=== PATIENT | male | born 1950 | race Caucasian/White ===

== ENCOUNTER 2020-05-19 09:07 | Day surgery (SDC) | payer BC ==
[~2020-05-19 09:07] MED LIST: Lactated Ringers 1,000 ML IV SCH; Lidocaine 1%/Sod Bicarbonate in NS 8.4% 1 ML Syringe IDERM PRN; Sodium Chloride 0.9% 10 ML Syringe FLUSH PRN
--- NOTE | 2020-05-19 09:54 | PCM.PREANE ---
Preanesthetic Assessment - Procedure Proposed Procedure: Colonoscopy - Anesthesia/Transfusion/Family Hx Anesthesia History: Prior Anesthesia Without Reaction Family History of Anesthesia Reaction: Yes Type of Transfusion Reactions: Reports: Unknown - Review of Systems General: No Symptoms Pulmonary: No Symptoms Cardiovascular: No Symptoms Gastrointestinal: No Symptoms Neurological: No Symptoms Other: Reports: None - Physical Assessment NPO Status Date: 05/19/20 (Bowel prep) Vital Signs: Last Vital Signs Temp 36.5 C 05/19/20 09:15 Pulse 56 L 05/19/20 09:15 Resp 16 05/19/20 09:15 BP 149/84 H 05/19/20 09:15 Pulse Ox 94 L 05/19/20 09:15 Height: 5 ft 8 in Weight: 72.121 kg ASA Class: 2 Mental Status: Alert & Oriented x3 Airway Class: Mallampati = 2 Dentition: Reports: Normal Dentition Thyro-Mental Finger Breadths: 3 Mouth Opening Finger Breadths: 3 ROM/Head Extension: Full Lungs: Clear to Auscultation, Normal Respiratory Effort Cardiovascular: Regular Rate, Regular Rhythm - Allergies Allergies/Adverse Reactions: Allergies Allergy/AdvReac Type Severity Reaction Status Date / Time No Known Allergies Allergy Verified 05/19/20 09:37 - Acknowledgements Anesthesia Type Planned: MAC Pt an Appropriate Candidate for the Planned Anesthesia: Yes Alternatives and Risks of Anesthesia Discussed w Pt/Guardian: Yes Pt/Guardian Understands and Agrees with Anesthesia Plan: Yes PreAnesthesia Questionnaire HEENT History: Reports: Impaired Vision, Other (See Below) Other HEENT History: wears glasses, nasal congestion Cardiovascular History: Reports: High Cholesterol, Hypertension Gastrointestinal History: Reports: Other (See Below) Other Gastrointestinal History: inguinal hernia Neurological History: Reports: Headaches, Chronic Endocrine/Metabolic History: Reports: Hypothyroidism Oncologic (Cancer) History: Reports: Prostate - Past Surgical History GI Surgical History: Reports: Colonoscopy, Hernia, Inguinal - HOME MEDS Home Medications: Home Meds Levothyroxine Sodium 50 mcg PO DAILY 08/12/16 [History] Multivitamin [Multivitamins] 1 each PO DAILY 08/12/16 [History] atorvaSTATin Calcium [Atorvastatin Calcium] 40 mg PO DAILY 08/12/16 [History] Brimonidine Tartrate/Timolol [Combigan 0.2%-0.5% Eye Drops] 1 drop EYEBOTH DAILY 05/18/20 [History] Dorzolamide/Timolol [Cosopt 2%-0.5% Ophth Soln] 1 drop EYEBOTH ASDIRECTED 05/18/20 [History] - CURRENT (IN HOUSE) MEDS Current Meds: Current Medications Lactated Ringer's (Ringers, Lactated) 1,000 mls @ 125 mls/hr IV ASDIRECTED EDDIE Stop: 05/19/20 23:00 Last Admin: 05/19/20 09:20 Dose: 125 mls/hr Documented by: Lidocaine/Sodium Bicarbonate (Buffered Lidocaine 1% In Ns 8.4%) 0.25 ml IDERM ONETIME PRN PRN Reason: Prior to IV Start Stop: 05/19/20 18:00 Last Admin: 05/19/20 09:20 Dose: 0.25 ml Documented by: Sodium Chloride (Saline Flush) 10 ml FLUSH ASDIRECTED PRN PRN Reason: Keep Vein Open Stop: 05/19/20 18:00
[2020-05-19] MEDS ORDERED: Propofol 200 MG/20 ML SDV ONE (10:20)
[2020-05-19] MEDS ORDERED: Lidocaine 1% 2 ML SDV ONE (10:21)
--- NOTE | 2020-05-19 10:54 | PCM.PRNOTE ---
- Free Text/Narrative Note: Date: 05/19/2020 Procedure: screening colonoscopy Endoscopist: Terrance Tom MD Findings: Ileocecal valve visualized. Prep was good. Mild diverticulosis. No polyps. External hemorrhoidal skin tag. Detailed Report: The patient was taken to the endoscopy suite and placed in left lateral decubitus position. Time out was performed and monitored anesthesia care was initiated. There was a moderate size external hemorrhoidal skin tag. Digital rectal exam was unremarkable. The lubricated colonoscope was then inserted and advanced all the way to the cecum. The ileocecal valve was visualized. The prep was good. On slow withdrawal of the scope, mucosal surfaces were carefully inspected. No polyps were identified. There was mild diverticulosis. No pathology noted on retroflexion within the rectum. Air was suctioned prior to withdrawal of the scope. The patient tolerated the procedure well.
[2020-05-19 11:08] VITALS: BP 122/71; PULSE 70
--- NOTE | 2020-05-19 11:30 | PCM.POSTAN ---
POST ANESTHESIA ASSESSMENT - MENTAL STATUS Mental Status: Alert, Oriented - VITAL SIGNS Vital Signs: Last Vital Signs Temp 36.5 C 05/19/20 09:15 Pulse 56 L 05/19/20 09:15 Resp 16 05/19/20 09:15 BP 149/84 H 05/19/20 09:15 Pulse Ox 94 L 05/19/20 09:15 - RESPIRATORY Respiratory Status: Respiratory Rate WNL, Airway Patent, O2 Saturation Stable - CARDIOVASCULAR CV Status: Pulse Rate WNL, Blood Pressure Stable - GASTROINTESTINAL GI Status: No Symptoms - POST OP HYDRATION Hydration Status: Adequate & Stable
--- NOTE | 2020-05-20 09:18 | PCM48HPAN ---
Post Anesthesia Note - EVALUATION WITHIN 48HRS OF ANESTHETIC Vital Signs in Normal Range: Yes Patient Participated in Evaluation: Yes Respiratory Function Stable: Yes Airway Patent: Yes Cardiovascular Function Stable: Yes Hydration Status Stable: Yes Pain Control Satisfactory: Yes Nausea and Vomiting Control Satisfactory: Yes Mental Status Recovered: Yes Vital Signs: Last Vital Signs Temp 36.3 C 05/19/20 11:05 Pulse 70 05/19/20 11:05 Resp 17 05/19/20 11:05 BP 122/71 05/19/20 11:05 Pulse Ox 100 05/19/20 11:05 - COMMENTS/OBSERVATIONS Free Text/Narrative:: Patient meets criteria for discharge home. VSS, SV, WILSON, FAC, CTAB. No concerns at this time.
== END 2020-05-19 12:03 | disposition home or self-care (01) ==
LOC: JD.SDS 09:07
PROVIDERS: ATTEND Surgery
DX: Z12.11 Encounter for screening for malignant neoplasm of colon (principal); K64.4 Residual hemorrhoidal skin tags; K57.30 Diverticulosis of large intestine without perforation or abscess without bleeding; E78.00 Pure hypercholesterolemia, unspecified; I10 Essential (primary) hypertension; E78.5 Hyperlipidemia, unspecified; E03.9 Hypothyroidism, unspecified; Z79.899 Other long term (current) drug therapy; Z79.890 Hormone replacement therapy
CPT/HCPCS: 00812; J2001; J2704; J7120